=== PATIENT | male | born 1965 | race Caucasian/White ===

== ENCOUNTER 2021-10-26 23:05 | Emergency (ER) | payer OTHER, SELFPAY ==
[2021-10-26 23:17] VITALS: BP 89/58; PULSE 63; RESP 16; TEMP 36.6; O2SAT 96; BMI 38.5
--- NOTE | 2021-10-26 23:31 | CTR_ITS ---
PROCEDURE INFORMATION: Exam: CT Head Without Contrast Exam date and time: 10/27/2021 12:02 AM Age: 56 years old Clinical indication: Syncope and collapse; Patient HX: Patient had syncopal episode with fall. Minor lac to RT eyebrow. Has been C/O of dizziness past few days. TECHNIQUE: Imaging protocol: Computed tomography of the head without contrast. Radiation optimization: All CT scans at this facility use at least one of these dose optimization techniques: automated exposure control; mA and/or kV adjustment per patient size (includes targeted exams where dose is matched to clinical indication); or iterative reconstruction. COMPARISON: No relevant prior studies available. RADIATION DOSE METRICS: Total DLP (mGy-cm): 1097.78 FINDINGS: Brain: No acute intracranial hemorrhage or mass effect. No definite acute infarct by CT. MRI could be more sensitive/specific for detection, as clinically directed. Cerebral ventricles: Ventricle size is normal for age. Paranasal sinuses: Included paranasal sinuses are essentially clear. Mastoid air cells: No significant acute finding. Bones/joints: No definite acute skull fracture. Soft tissues: Suspect mild tissue injury/scalp hematoma in the right supraorbital region. Vasculature: Vascular calcifications in the internal carotid arteries. CT/CT head wo con* [id number] IMPRESSION: 1. No acute intracranial hemorrhage or mass effect. 2. No definite acute infarct by CT, see above. 3. Other findings discussed above.
--- NOTE | 2021-10-26 23:31 | ECG_ITS ---
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 Measurements Intervals [place] Rate: 61 P: 72 LA: 180 QRS: 62 QRSD: 107 T: 53 QT: 417 QTc: 420 Interpretive Statements SINUS RHYTHM No previous ECG available for comparison Electronically Signed On 10-27-2021 18:05:59 CDT by Sapphire Garcia M.D. [email or web address]
[2021-10-26 23:40] LABS: Basophils % 0.4 %; Eosinophils # 0.1 10^3/uL (0.0-0.8); Hematocrit 44.2 % (42.0-52.0); Hemoglobin 14.7 g/dL (11.7-16.6); Lymphocytes # 3.1 10^3/uL (0.8-4.8); Lymphocytes % 44.9 %; Mean Corpuscular HGB Conc 33.3 g/dL (30.0-36.0); Mean Corpuscular Hemoglobin 30.8 pg (28.0-34.0); Mean Corpuscular Volume 92.5 fl (80-94); Mean Platelet Volume 11.4 fL (7.4-10.4); Monocytes # 0.5 10^3/uL (0.2-0.9); Monocytes % 7.5 %; Neutrophils # 3.13 10^3/uL (1.8-7.7); Neutrophils % 46.1 %; Nucleated Red Blood Cells % 0 %; Platelet Count 207 10^3/cmm (130-400); Red Blood Count 4.78 10^6/uL (4.1-5.3); Red Cell Distribution Width 14.2 % (12.1-15.1); White Blood Count 6.8 10^3/uL (4.0-10.0)
--- NOTE | 2021-10-26 23:41 | W.ED.SYNCOPE ---
HPI - Syncope General: Chief Complaint: Syncope Stated Complaint: Dizzy/Fall Time Seen by Provider: 10/26/21 23:29 Source: patient Mode of arrival: ambulatory Limitations: no limitations History of Present Illness: 56-year-old male who states that he has been moving over the last 2 weeks. He states he moved here [place] and he has been moving a lot of furniture and unloading trucks and has been out in the heat as well. He states over the last 2 days he has had some dizziness and lightheadedness he states that today while moving he passed out. He states happened roughly 5 hours ago he states that he had felt lightheaded and passed out and hit his head he states that he feels fine laying down but anytime he gets up and walks he feels like he may pass out denies any vertigo denies any chest pain denies any fevers or vomiting. Associated symptoms: Deny abdominal pain, chest pain, fever(s), headache(s) or nausea Review of Systems Const: Denies: fever(s), chills, body aches or change in appetite Eyes: Denies: blurry vision or eye discomfort ENMT: Denies: throat pain or dental pain Card: Denies: chest pain Resp: Denies: dyspnea GI: Denies: abdominal pain, nausea, vomiting or diarrhea : Denies: dysuria Musc: Denies: neck pain or back pain Skin/Breast: Denies: rash Neuro: Denies: headache(s) Psych: Denies: depression Aric/Lymph: Denies: easy bruising All/Imm: Denies: urticaria PFSH ED PFSH: Medical History (Updated 10/27/21 @ 02:58 by Caesar Pink MD) No pertinent past medical history Social History (Updated 10/26/21 @ 23:46 by Caesar Pink MD) Substance/Drug Use: unknown Physical Exam Const: COMMON NORMALS: no acute distress, patient oriented x3 and healthy appearing HENMT: COMMON NORMALS: normocephalic and atraumatic HEAD & SCALP: normocephalic and atraumatic Eye: COMMON NORMALS: Equal, round and reactive pupils present and EOMs intact bilaterally PUPIL: Yes Equal, round and reactive pupils present Neck/C-Spine: COMMON NORMALS: full ROM and supple Chest: COMMONS NORMALS: normal inspection of the chest and normal palpation of entire chest wall Resp: COMMON NORMALS: normal respiratory effort, No retractions, No use of accessory muscles and clear to auscultation bilaterally AUSCULTATION: clear to auscultation bilaterally Cardio: COMMON NORMALS: regular rate, regular rhythm and No murmurs present (Cardio) RATE: regular rate RHYTHM: regular rhythm GI: COMMON NORMALS: Normal to inspection, nondistended, normoactive bowel sounds present, Soft to palpation, non-tender and no masses PALPATION: Yes Soft to palpation Extremity: COMMON NORMALS: normal to inspection and full ROM Neuro: COMMON NORMALS: patient oriented x3, moves all extremities and no focal motor deficits Psych: COMMON NORMALS: mental status grossly normal, Normal thought process present and cooperative THOUGHT PROCESS: Normal thought process present Skin: COMMON NORMALS: no rashes or lesions noted and no wounds GENERAL SKIN EXAM: no rashes or lesions noted Course Vital Signs: Vital signs: Vital Signs Temperature 97.8 F 10/26/21 23:17 Pulse Rate 90 10/27/21 02:15 Respiratory Rate 14 10/27/21 02:15 Blood Pressure 132/89 10/27/21 02:15 Pulse Oximetry 95 10/27/21 02:15 Oxygen Delivery Me thod 10/26/21 23:17 MDM - Syncope Medical Decision Making Patient presents here after syncopal event likely due to dehydration he does have a slightly elevated creatinine has improved with IV fluids he has been able to make urine he is to rest and hydrate at home I feel he is stable for discharge at this time he is to follow-up with PCP in 3 to 5 days and return if worsening he understands agrees to plan. Lab Data : 10/26/21 23:36 10/27/21 02:[address] 10/26/21 23:31 IMPRESSION: 1. No acute intracranial hemorrhage or mass effect. 2. No definite acute infarct by CT, see above. 3. Other findings discussed above. Hand X-Ray 10/26/21 23:43 IMPRESSION: No acute fracture or dislocation. Chest X-Ray 10/27/21 00:08 IMPRESSION: 1. Mild bilateral lower lung opacities, see above discussion. 2. Other findings discussed above. Laboratory Results WBC 6.8 10^3/uL (4.0-10.0) 10/26/21 23:36 RBC 4.78 10^6/uL (4.1-5.3) 10/26/21 23:36 Hgb 14.7 g/dL (11.7-16.6) 10/26/21 23:36 Hct 44.2 % (42.0-52.0) 10/26/21 23:36 MCV 92.5 fl (80-94) 10/26/21 23:36 MCH 30.8 pg (28.0-34.0) 10/26/21 23:36 MCHC 33.3 g/dL (30.0-36.0) 10/26/21 23:36 RDW 14.2 % (12.1-15.1) 10/26/21 23:36 Plt Count 207 10^3/cmm (130-400) 10/26/21 23:36 MPV 11.4 fL (7.4-10.4) H 10/26/21 23:36 Neut % (Auto) 46.1 % 10/26/21 23:36 Lymph % (Auto) 44.9 % 10/26/21 23:36 [place] % (Auto) 7.5 % 10/26/21 23:36 Eos % (Auto) 1.0 % 10/26/21 23:36 Baso % (Auto) 0.4 % 10/26/21 23:36 Neut # (Auto) 3.13 10^3/uL (1.8-7.7) 10/26/21 23:36 Lymph # (Auto) 3.1 10^3/uL (0.8-4.8) 10/26/21 23:36 [place] # (Auto) 0.5 10^3/uL (0.2-0.9) 10/26/21 23:36 Eos # (Auto) 0.1 10^3/uL (0.0-0.8) 10/26/21 23:36 Baso # (Auto) 0.0 10^3/uL (0.0-0.1) 10/26/21 23:36 Nucleated RBC % (auto) 0 % 10/26/21 23:36 Nucleated RBCs # 0.0 /100WBC 10/26/21 23:36 Sodium 139 mmol/L (136-145) 10/27/21 02:17 Potassium 4.4 mmol/L (3.5-5.1) 10/27/21 02:17 Chloride 106 mmol/L (98-107) 10/27/21 02:17 Carbon Dioxide 22 mmol/L (22-29) 10/27/21 02:17 Anion Gap 15.4 (5-19) 10/27/21 02:17 BUN 40 mg/dL (6-20) H 10/27/21 02:17 Creatinine 2.3 mg/dL (0.7-1.2) H 10/27/21 02:17 GFR Calculation 29.5 mL/min (90-130) L 10/27/21 02:17 Glucose 91 mg/dL (65-115) 10/27/21 02:17 Calculated Osmolality 297 mOsm/kg (285-295) H 10/27/21 02:17 Calcium 7.7 mg/dL (8.5-10.5) L 10/27/21 02:17 Total Bilirubin 0.3 mg/dL (0.15-1.2) 10/26/21 23:36 AST 29 U/L (0-40) 10/26/21 23:36 ALT 23 U/L (0-41) 10/26/21 23:36 Alkaline Phosphatase 56 U/L (40-130) 10/26/21 23:36 Creatine Kinase 220 U/L (39-308) 10/26/21 23:36 CK-MB (CK-2) 2.8 ng/mL (0-10.4) 10/26/21 23:36 CK-MB (CK-2) Rel Index % (0.0-5.3) 10/26/21 23:36 Total Protein 7.7 g/dL (6.6-8.7) 10/26/21 23:36 Albumin 4.0 g/dL (3.5-5.2) 10/26/21 23:36 Globulin 3.7 g/dL (1.3-4.6) 10/26/21 23:36 EKG Data EKG 1: I personally reviewed and interpreted this EKG as follows: EKG interpretation date: 10/26/21 EKG interpretation time: 23:31 Interpretation: nsr hr [address] or t wave abnormalities qrs 107 qtc 419 Discharge Plan Discharge Patient Disposition: Home Clinical Impression: Syncope, Dehydration Condition: Stable Discharge Orders: Discharge ED (Routine); Ordered 10/27/21 Ordered By: Caesar Pink Discharge Diet: Advance as tolerated Discharge Activity: Resume usual activity Patient Instructions: Syncope (ED) Coding Level of Care Code ED 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
--- NOTE | 2021-10-26 23:43 | XRR_ITS ---
PROCEDURE INFORMATION: Exam: XR Right Hand Exam date and time: 10/26/2021 11:55 PM Age: 56 years old Clinical indication: Injury or trauma; Blunt trauma (contusions or hematomas); Right; Patient HX: C/O RT hand pain S/P fall from syncopal episode. TECHNIQUE: Imaging protocol: Radiologic exam of the Right hand. Views: 3 or more views. COMPARISON: No relevant prior studies available. FINDINGS: Bones/joints: There is no acute fracture or dislocation. If symptoms persist, follow-up imaging in several days may be useful to exclude an occult fracture. No other significant acute bone or joint abnormality. Soft tissues: No significant acute finding. XR/XR hand RT min 3V* [id number] IMPRESSION: No acute fracture or dislocation.
[2021-10-26] MEDS: sodium chloride 0.9% 1,000 ML 999 ML IV (23:59)
[2021-10-27 00:08] LABS: Alanine Aminotransferase 23 U/L (0-41); Alkaline Phosphatase 56 U/L (40-130); Anion Gap 21.7 (5-19); Aspartate Amino Transferase 29 U/L (0-40); Blood Urea Nitrogen 40 mg/dL (6-20); CKMB 2.8 ng/mL (0-10.4); Calcium 8.8 mg/dL (8.5-10.5); Carbon Dioxide 20 mmol/L (22-29); Chloride 101 mmol/L (98-107); Creatine Phosphokinase 220 U/L (39-308); Globulin 3.7 g/dL (1.3-4.6); Glomerular Filtration Rate 26.8 mL/min (90-130); Glucose 140 mg/dL (65-115); Osmolality Calculated 298 mOsm/kg (285-295); Potassium 4.7 mmol/L (3.5-5.1); Sodium 138 mmol/L (136-145); Total Bilirubin 0.3 mg/dL (0.15-1.2); Total Protein 7.7 g/dL (6.6-8.7)
--- NOTE | 2021-10-27 00:08 | XRR_ITS ---
PROCEDURE INFORMATION: Exam: XR Chest Exam date and time: 10/27/2021 12:14 AM Age: 56 years old Clinical indication: Shortness of breath; Patient HX: SOB S/P syncopal episode TECHNIQUE: Imaging protocol: Radiologic exam of the chest. Views: 1 view. COMPARISON: No relevant prior studies available. FINDINGS: Lungs: No definite CHF/pulmonary edema. Mild bilateral lower lung opacities, slightly greater on the left. Findings may represent atelectasis, subtle pneumonitis not excluded. Please correlate clinically. Visible lungs otherwise appear essentially clear. Pleural spaces: No visible pneumothorax. No definite pleural fluid. Heart/Mediastinum: Heart size is within normal limits. Bones/joints: No significant acute finding. XR/XR chest 1V portable [id number] IMPRESSION: 1. Mild bilateral lower lung opacities, see above discussion. 2. Other findings discussed above.
[2021-10-27] MEDS: sodium chloride 0.9% 1,000 ML 999 ML IV (00:26)
[2021-10-27 00:39] VITALS: BP 121/61; PULSE 58; RESP 18; O2SAT 96
[2021-10-27 02:15] VITALS: BP 132/89; PULSE 90; RESP 14; O2SAT 95
[2021-10-27 02:55] LABS: Anion Gap 15.4 (5-19); Blood Urea Nitrogen 40 mg/dL (6-20); Calcium 7.7 mg/dL (8.5-10.5); Carbon Dioxide 22 mmol/L (22-29); Chloride 106 mmol/L (98-107); Glomerular Filtration Rate 29.5 mL/min (90-130); Glucose 91 mg/dL (65-115); Osmolality Calculated 297 mOsm/kg (285-295); Potassium 4.4 mmol/L (3.5-5.1); Sodium 139 mmol/L (136-145)
[2021-10-27 03:00] VITALS: BP 137/72; PULSE 54; RESP 18; O2SAT 96
[2021-10-27 03:15] VITALS: BP 137/72; PULSE 54; RESP 18; O2SAT 96
== END 2021-10-27 03:17 | disposition home or self-care (01) ==
PROVIDERS: Emergency Provider Emergency Medicine
DX: R55 Syncope and collapse (principal); E86.0 Dehydration
CPT/HCPCS: 70450; 71045; 73130; 80048; 80053; 82550; 82553; 85025; 93005; 96360; 96361; 99285; J7030

== ENCOUNTER → 2025-01-22 08:36 | Outpatient (BNVA) | payer OTHER, SELFPAY | PROVIDERS: Referring Provider Nurse Practitioner Family; Visit Provider Anesthesiology Pain Medicine | DX: M47.816 Spondylosis without myelopathy or radiculopathy, lumbar region (principal) | CPT/HCPCS: 99204 ==

== ENCOUNTER → 2025-01-24 13:26 | Outpatient (BNVA) | payer OTHER, SELFPAY | PROVIDERS: Visit Provider Student in an Organized Health Care Education/Training Program | DX: Z12.11 Encounter for screening for malignant neoplasm of colon (principal); R03.0 Elevated blood-pressure reading, without diagnosis of hypertension | CPT/HCPCS: 99204 ==

== ENCOUNTER 2025-01-29 06:57 | Outpatient (CLI) | payer OTHER, SELFPAY ==
--- NOTE | 2025-01-31 09:15 | MR_ITS ---
WS: [id number] MRI LUMBAR SPINE NONCONTRAST HISTORY: M54.16 - Radiculopathy, lumbar region COMPARISON: None available. TECHNIQUE: Sagittal and axial multisequence imaging is submitted. L5 anterolisthesis by 8.3 mm. 3 mm retrolisthesis of L2 and L3. No acute fractures or marrow edema. Mild disc space narrowing and desiccation throughout the lumbar spine. Conus terminates normally at L1. L1-L2: Mild annular disc bulging and osteophytic ridging. Mild ligamentum flavum and facet arthritis. Mild disc encroachment upon the subarticular recesses and the traversing L2 nerve roots. Mild bilateral foraminal stenosis. L2-L3: Annular disc bulging with osteophytic ridging. Moderate ligamentum flavum and facet arthritis. Effacement of ventral CSF with disc contacting the traversing L3 nerve roots. Mild central with moderate subarticular recess and bilateral foraminal stenosis, RIGHT greater than LEFT. L3-L4: Diffuse annular disc bulging with osteophytic ridging. Central disc protrusion. Moderate ligamentum flavum and facet arthritis. Disc contacts the traversing L4 nerve roots. Severe bilateral foraminal stenosis. Small foraminal disc protrusions contributing to the stenosis which is greater on the RIGHT. L4-L5: Mild annular disc bulging with ligamentum flavum and facet arthritis. Mild disc contact on the RIGHT traversing L5 nerve root. Moderate to severe bilateral foraminal stenosis. Foraminal disc protrusions contact the exiting nerve roots with effacement of fat. L5-S1: Diffuse annular disc bulging. Mild encroachment upon the ventral thecal sac and the S1 nerve roots. Severe bilateral facet arthritis. Moderate to severe bilateral foraminal stenosis. Incompletely visualized RIGHT renal cyst 2.4 cm. Ectatic abdominal aorta and iliac arteries.
== END 2025-01-29 06:58 | disposition home or self-care (01) ==
PROVIDERS: Visit Provider Anesthesiology Pain Medicine
DX: M47.816 Spondylosis without myelopathy or radiculopathy, lumbar region (principal); E11.9 Type 2 diabetes mellitus without complications
CPT/HCPCS: 36416; 64493; 64494; 64495; 82962; J1010; J3490; J9999

== ENCOUNTER 2025-01-31 08:40 | Outpatient (CLI) | payer OTHER, SELFPAY ==
--- NOTE | 2025-01-31 | MR_ITS ---
WS: [id number] MRI LUMBAR SPINE NONCONTRAST HISTORY: M54.16 - Radiculopathy, lumbar region COMPARISON: None available. TECHNIQUE: Sagittal and axial multisequence imaging is submitted. L5 anterolisthesis by 8.3 mm. 3 mm retrolisthesis of L2 and L3. No acute fractures or marrow edema. Mild disc space narrowing and desiccation throughout the lumbar spine. Conus terminates normally at L1. L1-L2: Mild annular disc bulging and osteophytic ridging. Mild ligamentum flavum and facet arthritis. Mild disc encroachment upon the subarticular recesses and the traversing L2 nerve roots. Mild bilateral foraminal stenosis. L2-L3: Annular disc bulging with osteophytic ridging. Moderate ligamentum flavum and facet arthritis. Effacement of ventral CSF with disc contacting the traversing L3 nerve roots. Mild central with moderate subarticular recess and bilateral foraminal stenosis, RIGHT greater than LEFT. L3-L4: Diffuse annular disc bulging with osteophytic ridging. Central disc protrusion. Moderate ligamentum flavum and facet arthritis. Disc contacts the traversing L4 nerve roots. Severe bilateral foraminal stenosis. Small foraminal disc protrusions contributing to the stenosis which is greater on the RIGHT. L4-L5: Mild annular disc bulging with ligamentum flavum and facet arthritis. Mild disc contact on the RIGHT traversing L5 nerve root. Moderate to severe bilateral foraminal stenosis. Foraminal disc protrusions contact the exiting nerve roots with effacement of fat. L5-S1: Diffuse annular disc bulging. Mild encroachment upon the ventral thecal sac and the S1 nerve roots. Severe bilateral facet arthritis. Moderate to severe bilateral foraminal stenosis. Incompletely visualized RIGHT renal cyst 2.4 cm. Ectatic abdominal aorta and iliac arteries. MR/MR lumbar spine wo con* [id number] IMPRESSION: 1. L5 anterolisthesis by 8.3 mm. 2. 3 mm retrolisthesis of L2 and L3. 3. Severe bilateral foraminal stenosis secondary to disc, osteophyte and facet disease from L3-4 to L5-S1. 4. Small central disc protrusion at L3-4 with contact on the traversing L4 ner ve roots. 5. Mild disc contact on the RIGHT traversing L5 nerve root. 6. Disc encroachment upon the S1 nerve roots. 7. Mild central with moderate bilateral subarticular recess and foraminal sten osis at L2-3. 8. Mild bilateral foraminal stenosis at L1-2.
== END 2025-01-31 08:41 | disposition home or self-care (01) ==
LOC: RAD 08:41
PROVIDERS: Visit Provider Anesthesiology Pain Medicine
DX: M54.16 Radiculopathy, lumbar region (principal); M43.16 Spondylolisthesis, lumbar region; M48.061 Spinal stenosis, lumbar region without neurogenic claudication; M48.07 Spinal stenosis, lumbosacral region; M25.78 Osteophyte, vertebrae; M51.26 Other intervertebral disc displacement, lumbar region; M51.369 Other intervertebral disc degeneration, lumbar region without mention of lumbar back pain or lower extremity pain; M24.28 Disorder of ligament, vertebrae; M47.896 Other spondylosis, lumbar region; R93.7 Abnormal findings on diagnostic imaging of other parts of musculoskeletal system; M51.379 Other intervertebral disc degeneration, lumbosacral region without mention of lumbar back pain or lower extremity pain; M47.897 Other spondylosis, lumbosacral region; N28.1 Cyst of kidney, acquired; I77.811 Abdominal aortic ectasia; I77.89 Other specified disorders of arteries and arterioles
CPT/HCPCS: 72148

== ENCOUNTER 2025-02-05 09:03 | Day surgery (SDC) | payer OTHER, SELFPAY ==
[2025-02-05 09:17] VITALS: BP 143/88; PULSE 74; RESP 18; TEMP 36.6; O2SAT 94; BMI 35.8
--- NOTE | 2025-02-05 09:24 | ANES.PREANE2 ---
Pre-Anesthetic Assessment Height/Weight: Height 1.88 m Weight 126.552 kg Temp Pulse Resp BP Pulse Ox O2 Del Method 97.8 F 74 18 143/88 94 Room Air 02/05/25 09:17 02/05/25 09:17 02/05/25 09:17 02/05/25 09:17 02/05/25 09:17 02/05/25 09:17 Preop Diagnosis: screening; history of polyps Operation Date: 02/05/25 10:45 Proposed Procedures p Colonoscopy 56808 G0105 Z12.11(Not Applicable) - Florentino Avelar MD Was Beta Tim taken within 24 hours: N/A Was Clonidine taken within 24 hours: N/A Last intake: Intake Last Liquid Date 02/04/25 Last Liquid Time 22:00 Last Solid Date 02/03/25 Last Solid Time 18:00 Social Tobacco 1.5 pack(s) per day Exam alert, oriented x 3, clear to auscultation bilaterally and regular rate & rhythm diminshed Airway Submandibular: within normal limits Cervical ROM: within normal limits Mallampati: Class II Dentition: chipped Comments: Comments: facial hair History/ROS No significant history except as noted Pulmonary Chronic Obstructive Pulmonary Disease and Sleep Apnea denies inhalers; does not currently use CPAP CV/HEM Hypertension None reported Hepatic None reported GI None reported Metabolic Diabetes Mellitus GLP1 10 days ago Musc/skel Lower Back Pain Neuropsych None reported Anesthetic Plan ASA status: 3 Anesthesia: MAC Other: general backup Risk of > 500 ml blood loss (7ml/kg in children): No Medications/Allergies Home Medications ?Medication ?Instructions ?Recorded ?Confirmed ?Last Taken ?Type aspirin 81 mg tablet 81 mg PO DAILY 01/22/25 02/05/25 01/30/25 History cholecalciferol (vitamin D3) 50 50 mcg PO DAILY 01/22/25 02/05/25 01/30/25 History mcg (2,000 unit) capsule empagliflozin 25 mg tablet 25 mg PO DAILY 01/22/25 02/05/25 02/03/25 History famotidine 20 mg tablet 20 mg PO BID 01/22/25 02/05/25 3 Weeks Ago History ~01/09/25 insulin aspart U-100 100 unit/mL 4 unit SUBCUT TID 01/22/25 02/05/25 2 Weeks Ago History subcutaneous cartridge ~01/16/25 insulin glargine 100 unit/mL (3 30 unit SUBCUT BEDTIME 01/22/25 02/05/25 2 Weeks Ago History mL) subcutaneous pen (Lantus ~01/16/25 Solostar U-100 Insulin) lisinopril 40 mg tablet 40 mg PO DAILY 01/22/25 02/05/25 02/03/25 History metformin 1,000 mg tablet 1,000 mg PO BID 01/22/25 02/05/25 01/30/25 History rosuvastatin 40 mg tablet 40 mg PO DAILY 01/22/25 02/05/25 01/29/25 History semaglutide 1 mg/dose (4 mg/3 mL) 1 mg SUBCUT .WEEKLY 01/22/25 02/05/25 01/27/25 History subcutaneous pen injector Allergies Allergy/AdvReac Type Severity Reaction Status Date / Time No Known Allergies Allergy Verified 02/05/25 09:15 [facility] Anesthesia Medical History No pertinent past medical history Social History Smoking and tobacco/nicotine status: current every day tobacco/nicotine user Substance/Drug Use: unknown
--- NOTE | 2025-02-05 09:54 | W.PM.OPSUD ---
Surgery/Procedure H&P Update DATE OF PROCEDURE: February 05, 2025 DATE H&P PERFORMED: 01/24/25 H&P UPDATE INFORMATION: I have reviewed H&P completed within last 30 days, I have examined patient prior to procedure, No changes to prior documentation and Risks and benefits of the procedure reviewed PREOP DIAGNOSIS: screening; history of polyps PLANNED PROCEDURE: Operation Date: 02/05/25 10:45 Proposed Procedures p Colonoscopy [id number] G0105 Z12.11(Not Applicable) - Florentino Avelar MD
[2025-02-05 10:25] VITALS: BP 151/62; PULSE 61; RESP 18; TEMP 36.3; O2SAT 92
[2025-02-05 10:39] VITALS: BP 155/68; PULSE 70; RESP 18; O2SAT 94
--- NOTE | 2025-02-05 11:10 | ANE.PACU2 ---
Inpatient post-anesthesia follow up: Airway intact: Yes Vital signs: Temperature 97.4 F Pulse Rate 70 Respiratory Rate 18 Blood Pressure 155/68 Pulse Oximetry 94 Oxygen Delivery Me thod Room Air Oxygen Flow Rate Fraction of Inspir ed Oxygen Hydration adequate: Yes Nausea and vomiting: No Pain level: 1 Mental status: Baseline
== END 2025-02-05 11:10 | disposition home or self-care (01) ==
PROVIDERS: Visit Provider Student in an Organized Health Care Education/Training Program
PROC: 0DJD8ZZ Inspection of Lower Intestinal Tract, Via Natural or Artificial Opening Endoscopic (ICD-10-PCS; CPT 45378; principal; 2025-02-05 10:45)
DX: Z12.11 Encounter for screening for malignant neoplasm of colon (principal); D12.2 Benign neoplasm of ascending colon; D12.5 Benign neoplasm of sigmoid colon; Z79.82 Long term (current) use of aspirin; Z79.84 Long term (current) use of oral hypoglycemic drugs; Z79.4 Long term (current) use of insulin; F17.200 Nicotine dependence, unspecified, uncomplicated; Z86.0100 Personal history of colon polyps, unspecified; E11.9 Type 2 diabetes mellitus without complications; J44.9 Chronic obstructive pulmonary disease, unspecified; G47.30 Sleep apnea, unspecified; I10 Essential (primary) hypertension
CPT/HCPCS: 36416; 45380; 45385; 82962; 88305; J2704; J7030; J9999

== ENCOUNTER → 2025-02-12 07:39 | Outpatient (BNVA) | payer OTHER, SELFPAY | PROVIDERS: Visit Provider Anesthesiology Pain Medicine | DX: M47.816 Spondylosis without myelopathy or radiculopathy, lumbar region (principal); F17.200 Nicotine dependence, unspecified, uncomplicated | CPT/HCPCS: 99214 ==

== ENCOUNTER → 2025-02-18 07:46 | Outpatient (BNVA) | payer OTHER, SELFPAY | PROVIDERS: Visit Provider Student in an Organized Health Care Education/Training Program | DX: Z51.89 Encounter for other specified aftercare (principal); R03.0 Elevated blood-pressure reading, without diagnosis of hypertension | CPT/HCPCS: 99213 ==

== ENCOUNTER → 2025-02-26 13:42 | Outpatient (BNVA) | payer OTHER, SELFPAY | PROVIDERS: Visit Provider Anesthesiology Pain Medicine | DX: M54.16 Radiculopathy, lumbar region (principal); E11.9 Type 2 diabetes mellitus without complications | CPT/HCPCS: 36416; 62323; 82962; J1010; J9999 ==

== ENCOUNTER → 2025-03-12 13:37 | Outpatient (BNVA) | payer OTHER, SELFPAY | PROVIDERS: Visit Provider Orthopaedic Surgery | DX: M25.561 Pain in right knee (principal); M25.562 Pain in left knee; G89.29 Other chronic pain | CPT/HCPCS: 99204 ==